=== PATIENT | male | born 1940 | race Caucasian/White ===

== ENCOUNTER 2016-07-17 00:42 | Emergency (ER) | payer MEDICARE, BC ==
--- NOTE | 2016-07-17 01:56 | EDM.PDOC ---
ED HPI NEURO - General Chief Complaint: Neurological Problem Stated Complaint: [facility] Time Seen by Provider: 07/17/16 00:54 Source: Reports: Patient History Limitations: Reports: No limitations - History of Present Illness INITIAL COMMENTS - FREE TEXT/NARRATIVE: History of present illness: [76-year-old male presents with a history of a TIA in which she had left-sided weakness involving his left arm left leg and slurred speech that occurred at 11: 30 PM and lasted 45 minutes and resolved. He came in by ambulance. Prior to this event he took an aspirin 81 mg which he takes every day. At this time he has no complaints HEENT no headaches or visual disturbances or focal neurologic deficits. This is his first TIA. He is borderline diabetic. History of hypertension. No history of coronary disease] Review of systems: As per history of present illness and below otherwise all systems reviewed and negative. Past medical history: As per history of present illness and as reviewed below otherwise noncontributory. Surgical history: As per history of present illness and as reviewed below otherwise noncontributory. Social history: No reported history of drug or alcohol abuse. Family history: As per history of present illness and as reviewed below otherwise noncontributory. Physical exam: HEENT: Atraumatic, normocephalic, pupils reactive, negative for conjunctival pallor or scleral icterus, mucous membranes moist, throat clear, neck supple, nontender, trachea midline. Lungs: Clear to auscultation, Heart: S1S2, regular Abdomen: Soft, nondistended, nontender. Negative for masses or hepatosplenomegaly Pelvis: Stable nontender. Genitourinary: Deferred. Rectal: Deferred. Extremities: Atraumatic, negative for cords or calf pain. Neurovascular unremarkable. Neuro: Awake, alert, oriented. Exam nonfocal. Diagnostics: [ head CT is negative lab work is unremarkable] Therapeutics: [Were giving him an additional 81 mg of aspirin] Impression: [TIA] Plan: [He's been transported to [facility] via ALS accepting. ] Definitive disposition and diagnosis as appropriate pending reevaluation and review of above. - Related Data Allergies/ADRs: Allergies Allergy/AdvReac Type Severity Reaction Status Date / Time Sulfa (Sulfonamide Allergy Intermediate Hives Verified 07/17/16 00:44 Antibiotics) codeine AdvReac Severe Hallucinati Verified 07/17/16 00:44 ons atorvastatin calcium AdvReac Intermediate Muscle Verified 07/17/16 00:44 [From Lipitor] Aches lisinopril AdvReac Intermediate cough, Verified 07/17/16 00:44 Home Meds: Home Meds Aspirin 81 mg PO DAILY 03/08/13 [History] Cholecalciferol (Vitamin D3) [Vitamin D3] 2,000 unit PO DAILY 03/08/13 [History] Valsartan [Diovan] 80 mg PO DAILY 03/08/13 [History] traMADol [Ultram] 50 mg PO BEDTIME PRN 03/08/13 [History] Cyclobenzaprine [Flexeril] 10 mg PO TID PRN #30 tablet 09/05/13 [Rx] Morphine 15 mg PO Q4H PRN #30 tablet 08/12/15 [Rx] Ibuprofen [Advil] 400 mg PO BEDTIME 07/17/16 [History] Tamsulosin [Flomax] 0.4 mg PO DAILY 07/17/16 [History] Past Medical History HEENT History: Reports: Other (see below) 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 Genitourinary History: Reports: Prostate disorder, Urinary incontinence Musculoskeletal History: Reports: Arthritis, Back pain, chronic, Other (see below) Other Musculoskeletal History: broken ribs, floating patella - Infectious Disease History Infectious Disease History: Reports: Chicken pox, Measles, Mumps, Shingles - Past Surgical History GI Surgical History: Reports: Hernia, abdominal, Hernia repair/other Musculoskeletal Surgical History: Reports: Shoulder surgery Other Musculoskeletal Surgeries/Procedures:: bilateral shoulder surgery Social & Family History - Family History OBGYN: Reports: None Musculoskeletal: Reports: Arthritis Neurological: Reports: CVA Oncologic: Reports: Metastatic - Tobacco Use Smoking Status *Q: Never Smoker Second Hand Smoke Exposure: No - Caffeine Use Caffeine Use: Reports: Coffee - Alcohol Use Days Per Week of Alcohol Use: 1 Number of Drinks Per Day: 1 Total Drinks Per Week: 1 - Recreational Drug Use Recreational Drug Use: No ED ROS GENERAL - Review of Systems Review Of Systems: ROS reveals no pertinent complaints other than HPI. ED EXAM, NEURO - Physical Exam Exam: See Below Course - Vital Signs Last Recorded V/S: Last Vital Signs Temp 36.3 C 07/17/16 00:48 Pulse 89 07/17/16 00:48 Resp 16 07/17/16 00:48 BP 134/84 07/17/16 00:48 Pulse Ox 93 L 07/17/16 00:48 - Orders/Labs/Meds Orders: Active Orders 24 hr Category Date Time Status EKG Documentation Completion [RC] ASDIRECTED Care 07/17/16 00:56 Active Chest 1V Frontal [CR] Stat Exams 07/17/16 00:55 Taken Head wo Cont [CT] Stat Exams 07/17/16 00:55 Taken EKG 12 Lead [EK] Stat Ther 07/17/16 00:55 Ordered Labs: Laboratory Tests 07/17/16 07/17/16 07/17/16 Range/Units 00:55 00:55 00:55 WBC 10.3 (4.5-11.0) K/uL RBC 4.79 (4.30-5.90) M/uL Hgb 15.3 H (12.0-15.0) g/dL Hct 47.0 (40.0-54.0) % MCV 98 (80-98) fL MCH 32 H (27-31) pg MCHC 33 (32-36) % Plt Count 203 (150-400) K/uL Neut % (Auto) 58 (36-66) % Lymph % (Auto) 28 (24-44) % [place] % (Auto) 11 H (2-6) % Eos % (Auto) 2 (2-4) % Baso % (Auto) 1 (0-1) % PT 10.8 (9.5-12.0) sec INR 1.02 (0.80-1.20) D-Dimer, Quantitative 298 (0.0-400.0) ng/mL Sodium (140-148) mmol/L Potassium (3.6-5.2) mmol/L Chloride (100-108) mmol/L Carbon Dioxide (21-32) mmol/L Anion Gap (5.0-14.0) mmol/L BUN (7-18) mg/dL Creatinine (0.8-1.3) mg/dL Est Cr Clr Drug Dosing mL/min Estimated GFR (MDRD) (>60) Glucose (74-106) mg/dL Calcium (8.5-10.1) mg/dL Total Bilirubin (0.2-1.0) mg/dL AST (15-37) U/L ALT (12-78) U/L Alkaline Phosphatase (46-116) U/L Troponin I (0.000-0.056) ng/mL Total Protein (6.4-8.2) g/dL Albumin (3.4-5.0) g/dL Globulin (2.3-3.5) g/dL Albumin/Globulin Ratio (1.2-2.2) 07/17/16 Range/Units 00:55 WBC (4.5-11.0) K/uL RBC (4.30-5.90) M/uL Hgb (12.0-15.0) g/dL Hct (40.0-54.0) % MCV (80-98) fL MCH (27-31) pg MCHC (32-36) % Plt Count (150-400) K/uL Neut % (Auto) (36-66) % Lymph % (Auto) (24-44) % [place] % (Auto) (2-6) % Eos % (Auto) (2-4) % Baso % (Auto) (0-1) % PT (9.5-12.0) sec INR (0.80-1.20) D-Dimer, Quantitative (0.0-400.0) ng/mL Sodium 143 (140-148) mmol/L Potassium 4.1 (3.6-5.2) mmol/L Chloride 107 (100-108) mmol/L Carbon Dioxide 30 (21-32) mmol/L Anion Gap 6.1 (5.0-14.0) mmol/L BUN 24 H D (7-18) mg/dL Creatinine 1.2 (0.8-1.3) mg/dL Est Cr Clr Drug Dosing 48.74 mL/min Estimated GFR (MDRD) 59 L (>60) Glucose 141 H (74-106) mg/dL Calcium 8.8 (8.5-10.1) mg/dL Total Bilirubin 0.3 D (0.2-1.0) mg/dL AST 14 L (15-37) U/L ALT 33 (12-78) U/L Alkaline Phosphatase 82 (46-116) U/L Troponin I < 0.017 (0.000-0.056) ng/mL Total Protein 6.9 (6.4-8.2) g/dL Albumin 3.3 L (3.4-5.0) g/dL Globulin 3.6 H (2.3-3.5) g/dL Albumin/Globulin Ratio 0.9 L (1.2-2.2) Departure - Departure Time of Disposition: 01:55 Disposition: DC/Tfer to Acute Hospital 02 Condition: good Clinical Impression: TIA (transient ischemic attack) Qualifiers: Transient cerebral ischemia type: unspecified Qualified Code(s): G45.9 - Transient cerebral ischemic attack, unspecified Forms: ED Department Discharge - My Orders Last 24 Hours: My Active Orders 07/17/16 00:55 Chest 1V Frontal [CR] Stat Head wo Cont [CT] Stat EKG 12 Lead [EK] Stat 07/17/16 00:56 EKG Documentation Completion [RC] ASDIRECTED - Assessment/Plan Last 24 Hours: My Active Orders 07/17/16 00:55 Chest 1V Frontal [CR] Stat Head wo Cont [CT] Stat EKG 12 Lead [EK] Stat 07/17/16 00:56 EKG Documentation Completion [RC] ASDIRECTED
[2016-07-17] MEDS ORDERED: Aspirin 81 MG Tab.Chew PO ONE (01:57)
[2016-07-17 02:08] VITALS: BP 134/71
--- NOTE | 2016-07-17 10:40 | CR ---
Mild-moderate cardiomegaly. No focal consolidation. Minimal atelectatic change left lung base.
== END 2016-07-17 02:32 ==
LOC: JP.ED 00:42
DX: G45.9 Transient cerebral ischemic attack, unspecified (principal); G89.29 Other chronic pain; M54.9 Dorsalgia, unspecified; Z98.890 Other specified postprocedural states; Z79.82 Long term (current) use of aspirin; Z79.899 Other long term (current) drug therapy; Z88.2 Allergy status to sulfonamides; Z88.5 Allergy status to narcotic agent; Z88.8 Allergy status to other drugs, medicaments and biological substances
CPT/HCPCS: 36415; 70450; 71010; 80053; 84484; 85025; 85379; 85610; 93005; 99285; A9270; 93010

== ENCOUNTER 2023-10-14 08:40 | Day surgery (SDC) | payer MEDICARE ==
[2023-10-14] MEDS ORDERED: Propofol 200 MG/20 ML SDV ONE (09:17)
[2023-10-14] MEDS ORDERED: fentaNYL 50 MCG/ML SDV ONE (09:17)
[2023-10-14] MEDS: Sodium Chloride 0.9% 1,000 ML IV SCH (09:35)
[2023-10-14 11:54] VITALS: BP 131/83; PULSE 73
== END 2023-10-14 11:59 | disposition home or self-care (01) ==
LOC: JP.SDS 08:40
PROVIDERS: ATTEND Surgery
DX: Z12.11 Encounter for screening for malignant neoplasm of colon (principal); D12.3 Benign neoplasm of transverse colon; K57.30 Diverticulosis of large intestine without perforation or abscess without bleeding
CPT/HCPCS: 00811; 45385; J2704; J3010; J7030; 88305